=== PATIENT | male | born 1950 | race Caucasian/White ===

== ENCOUNTER 2019-07-21 | Day surgery (SDC) | payer OTHER ==
[~2019-07-21] MED LIST: AMLOD/BENAZP1 CAP PO; ASPIRIN81 MG PO; BUPROPION HCL150 MG PO; CLONAZEPAM1 MG PO; LIPITOR40 M1 PO; MIRTAZAPINE15 MG PO; SILDENAFIL100 MG PO; TAMSULOSIN HCL0.4 MG PO; VITAMIN B 650 MG PO; [UNRECOGNIZED DRUG - CODE] MT
[2020-03-18] MEDS ORDERED: CARAFATE1 GM PO (09:58)
[2020-03-18] MEDS ORDERED: METOPROL TAR25 MG PO (09:58)
[2020-03-18] MEDS ORDERED: LEVOTHYROXIN50 MCG PO (09:58)
[2020-03-18] MEDS ORDERED: OMEPRAZOLE20 M1 PO (09:58)
[2020-03-18] MEDS ORDERED: MULTI VIT PO (09:59)
== END 2019-07-21 11:00 | disposition home or self-care (01) | DRG 392 ==
PROC: 0DB48ZX Excision of Esophagogastric Junction, Via Natural or Artificial Opening Endoscopic, Diagnostic (ICD-10-PCS; principal; 2019-07-21)
PROC: 0DB78ZX Excision of Stomach, Pylorus, Via Natural or Artificial Opening Endoscopic, Diagnostic (ICD-10-PCS; 2019-07-21)
PROC: 0D758ZZ Dilation of Esophagus, Via Natural or Artificial Opening Endoscopic (ICD-10-PCS; 2019-07-21)
PROC: 0DBH8ZX Excision of Cecum, Via Natural or Artificial Opening Endoscopic, Diagnostic (ICD-10-PCS; 2019-07-21)
PROC: 0DBN8ZX Excision of Sigmoid Colon, Via Natural or Artificial Opening Endoscopic, Diagnostic (ICD-10-PCS; 2019-07-21)
DX: K21.0 Gastro-esophageal reflux disease with esophagitis (principal); K29.70 Gastritis, unspecified, without bleeding; K29.80 Duodenitis without bleeding; K44.9 Diaphragmatic hernia without obstruction or gangrene; Z12.11 Encounter for screening for malignant neoplasm of colon; D12.0 Benign neoplasm of cecum; D12.5 Benign neoplasm of sigmoid colon; K57.30 Diverticulosis of large intestine without perforation or abscess without bleeding; K64.4 Residual hemorrhoidal skin tags; K64.8 Other hemorrhoids; I25.10 Atherosclerotic heart disease of native coronary artery without angina pectoris; I25.2 Old myocardial infarction; Z92.21 Personal history of antineoplastic chemotherapy; Z86.010 Personal history of colon polyps; Z95.5 Presence of coronary angioplasty implant and graft